=== PATIENT | female | born 1990 | race Caucasian/White ===

== ENCOUNTER 2016-09-09 10:57 | Inpatient (IN) | payer OTHER ==
[2016-09-09] MEDS ORDERED: Lidocaine 1% 30 ML SDV INJECT ONE (11:00)
[2016-09-09] MEDS ORDERED: Lidocaine 1% 30 ML SDV ONE (11:06)
[2016-09-09] MEDS ORDERED: Zolpidem 5 MG Tab PO PRN (12:36)
[2016-09-09] MEDS ORDERED: Sodium Chloride 0.9% 10 ML Syringe FLUSH PRN (12:36)
[2016-09-09] MEDS ORDERED: Carboprost Tromethamine 250 MCG/1 ML Amp IM PRN (12:36)
[2016-09-09] MEDS ORDERED: Simethicone 80 MG Tab.Chew PO PRN (12:36)
[2016-09-09] MEDS ORDERED: Oxytocin 10 Units/1 ML SDV IM PRN (12:36)
[2016-09-09] MEDS ORDERED: Benzocaine/Menthol 20%-0.5% Spray 56 GM Canister TOP PRN (12:36)
[2016-09-09] MEDS ORDERED: Acetaminophen 325 MG Tab PO PRN (12:36)
[2016-09-09] MEDS ORDERED: Misoprostol 400 MCG (4 X 100 MCG TAB) RECTAL PRN (12:36)
[2016-09-09] MEDS ORDERED: Oxytocin/Normal Saline 30 UNIT/500 ML BAG IV SCH (14:45)
[2016-09-09] MEDS: Ibuprofen 800 MG Tab PO PRN (14:46)
--- NOTE | 2016-09-09 14:49 | HP ---
PATIENT IDENTIFICATION: Samantha Nunn is a 26-year-old, G1, P0, intrauterine at 40 and 6/7th weeks, confirmed with 18-week ultrasound, who presents with contractions and vaginal leaking. HISTORY OF PRESENT ILLNESS: The patient states contractions started at approximately 05:00 a.m. on date of admission, increasing in frequency and intensity to the point that she is breathing and screaming through them, felt in the lower abdomen, and nothing seems to make them better or worse. Associated with this has been some vaginal leaking noted while they were en-route in a car to the hospital. She is unsure of what color, she does note some minimal bloody show. Records were called for, reviewed as below, and supplemented by patient history. OBSTETRICAL HISTORY: Primipara. ANTEPARTUM LABS: ABO blood type A negative. Negative antibody. Rubella immune. RPR nonreactive. Negative hepatitis B surface antigen. Negative hep C, HIV, GC, and Chlamydia. Wet prep remarkable for BV. One-hour GTT was 100 on 06/13/2016, hemoglobin was 12.4, and platelets 252,000 on 08/01/2016, with GBS negative the same day. ALLERGIES: None. MEDICATIONS: 1. vitamins. 2. Iron sulfate 325 daily. PAST MEDICAL/PAST SURGICAL HISTORY: Remarkable for menarche age 12, regular periods since July 2014, history of chickenpox as a child. Body piercing belly and ears. No IV drug use or blood transfusions, and has history of tattoo. SOCIAL HISTORY: No smoking and no alcohol during . Sexually active with male partner. She is and presents with him. His name is Stone. 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 They have a dog and a cat. FAMILY HISTORY: Breast cancer in maternal aunt. Diabetes in maternal grandmother, and paternal grandmother. Hypertension in father. Maternal grandmother with lung cancer, nonsmoker. Paternal grandfather is a twin. Paternal grandmother has myasthenia gravis, Prostate cancer in maternal grandfather and mother with thyroid disease. Negative family history of defects, cystic fibrosis, seizures, bleeding problems, or clotting disorders. REVIEW OF SYSTEMS: Quickly reviewed and otherwise felt to be noncontributory. The patient has been having a mild head cold. No fever, chills, sweats, or other concerns elicited. The patient denies any headaches, visual changes, or upper abdominal pain. OBJECTIVE: Vital Signs: She did have a blood pressure of 137/92, heart rate was around 120 to 130. Patient was afebrile. Respiratory rate is between 16 and 20, and nonlabored. General Appearance: Female appears her stated age, acting appropriate for age. Breathing through contractions, but answering questions appropriately in between. HEENT: Head is atraumatic. EOMs intact. PERRLA. No scleral icterus. No obvious otorhinorrhea. Mucous membranes are moist. Neck: No obvious tenderness. Lungs: Clear to auscultation bilaterally. No increased work of breathing. Heart: S1 and S2. Regular rate and rhythm. Abdomen: Gravid. Cristian's indeterminate. Nontender, nondistended. Bowel sounds positive. No organomegaly, pulsatile masses, or hernias. No rebound, rigidity, or guarding. Monitors applied. : Normal external female genitalia. Normal position and presentation of urethra. Vaginal exam reveals her to be complete with thick meconium fluid noted emanating from the vaginal area. Extremities: Trace edema. Deep tendon reflexes 2 to 3/4 bilaterally and symmetric in lower extremities. Psych: Mood and affect congruent. Judgment and insight intact. Skin: Without any cyanosis, clubbing, or jaundice. heart tones were felt to be reassuring upon admission. Tocometer revealed contractions on average every 2 minutes. LABORATORY DATA: CBC is pending. Please see delivery note for further details thereafter in terms of events. ASSESSMENT: 1. Intrauterine 40 and 6/7 weeks, confirmed with 18-week ultrasound. 2. Active labor. 3. Advanced cervical dilation. 4. Spontaneous rupture of membranes. 5. Thick meconium fluid. 6. Group B Streptococcus negative. 7. Rh negative. 8. History of PUPPPs during this per documentation. 9. G1, PO. 10.Gestational versus transient hypertension. PLAN: The patient was admitted, room was set up, and as she was found to be in the second stage of labor with occasional decelerations and had the urge to push, she started pushing. Please see delivery note for further details. In regard to her hypertension, we will follow closely after delivery as she delivered pretty quickly after being evaluated. [facility] /[id number]
[2016-09-09] MEDS ORDERED: Lactated Ringers 1,000 ML IV SCH (15:45)
[2016-09-10] MEDS: Ibuprofen 800 MG Tab PO PRN ×3 (00:59→17:14)
--- NOTE | 2016-09-10 08:17 | PN ---
DATE: 09/10/2016 SUBJECTIVE: Post-delivery day #1, status post vacuum-assisted vaginal delivery. See Dr. Ibrahim's delivery note for full details. The patient reports that she is doing well. She has been ambulating and tolerating regular diet. Blood flow has been as expected. She is her baby with some assistance from the nursing staff, not yet had a bowel movement, is voiding without any complications and overall feeling well today. OBJECTIVE: General: Pleasant, well-appearing 26-year-old female. Vital Signs: Temperature is 98.5, pulse 90, blood pressure 106/58, respiratory rate of 18, and O2 saturations of 97% on room air. Heart: Regular without obvious murmur. Lungs: Clear to auscultation bilaterally. Abdomen: Soft. Fundus is firm and below the umbilicus. Extremities: Trace edema. No erythema or tenderness noted. LABORATORY DATA: Shows hemoglobin is down to 12.1 from an admission hemoglobin of 14.4. ASSESSMENT: 1. Status post vacuum-assisted vaginal delivery because of bradycardia and tachycardia with recurrent decelerations. 2. 1, now para 1. 3. History of pruritic urticarial papules and plaques of rash plus blood type A negative. Baby's blood type is AB negative. She will not require RhoGAM. 4. Rubella immune. PLAN: Continue routine post-delivery cares. Anticipate discharge home tomorrow as long as all continues to go well. Reviewed delivery course with the patient and her and their questions were answered. [facility] /[id number]
[2016-09-10] MEDS: Prenatal Multivitamin with Calcium/Folic Acid/Iron Tab PO SCH (09:17)
[2016-09-10] MEDS: Docusate Sodium 100 MG Cap PO PRN ×2 (09:17→21:02)
--- NOTE | 2016-09-10 09:35 | DEL ---
DATE: 09/09/2016 PREOPERATIVE DIAGNOSES: 1. Intrauterine at 40-6/7 weeks, confirmed with 18-week ultrasound. 2. Active labor upon admit. 3. Advanced cervical dilation upon admit. 4. Spontaneous rupture prior to admit. 5. Thick meconium fluid. 6. Group B Streptococcus negative. 7. Rh negative. 8. History of pruritic urticarial papules and plaques of per documentation. 9. Gestational versus transient hypertension. 10. 1, para 0. 11. tachycardia. 12.Recurrent decelerations. 13. bradycardia. POSTOPERATIVE DIAGNOSES: 1. Intrauterine at 40-6/7 weeks, confirmed with 18-week ultrasound- delivered. 2. Active labor upon admit. 3. Advanced cervical dilation upon admit. 4. Spontaneous rupture prior to admit. 5. Thick meconium fluid. 6. Group B Streptococcus negative. 7. Rh negative. 8. History of pruritic urticarial papules and plaques of per documentation. 9. Gestational versus transient hypertension. 10. 1, para 0. 11. tachycardia. 12.Recurrent decelerations. 13. bradycardia. 14.LEISA presentation. 15.Tight nuchal cord x3 reduced bluntly with delivery. 16.Second-degree perineal laceration-repaired. PROCEDURE PERFORMED: Vacuum-assisted vaginal delivery with second-degree perineal laceration-repaired. ANESTHESIA/ANALGESIA: The patient did receive 1% lidocaine without epinephrine, approximately 10 mL for local repair with good anesthetic result. ESTIMATED BLOOD LOSS: 300 mL. FINDINGS: Female with scores of 1, 6 and 8. Weight pending.. Nuchal cord x3 reduced bluntly with delivery with thick meconium fluid. SUMMARY OF EVENTS: The patient is a 26-year-old, G1, P0, intrauterine 40-6/7 weeks, confirmed with 18-week ultrasound, presented with contractions and vaginal leaking. She was found to be in the second stage of labor upon initial evaluation. Room was set up, and as the patient had the urge to push, she started pushing with contractions. There was noted to be some recurrent decelerations that seemed to worsen over time, followed by tachycardia and then bradycardia. During this time period, Garcia-type catheter was introduced, coleman-colored urine returned. This was removed and discussion ensued in regard to using Kiwi vacuum. Subsequently, with the patient pushing, vertex was noted to be splitting the labia and nearly and there was concerns with heart tones. Subsequently, Kiwi vacuum was applied using the small cup Kiwi, pumped up to the green, and with the next episode of pushing and gentle pulling using the pressure monitor, vertex was delivered. Vacuum was disengaged. Nuchal cord x3 was noted and reduced bluntly with delivery with anterior and posterior shoulder as well as rest of the infant thereafter. LEISA presentation was noted. Cord was then doubly clamped and cut. Infant was brought over to team for resuscitation. Then, approximately 10 mL of cord blood was obtained for labs. Placenta then delivered with gentle cord traction with fundal massage within 5- 15 minutes. Perineum, vagina, and perirectal areas were then examined and noted to have a second-degree perineal laceration that was anesthetized and repaired in the usual fashion using 3-0 Vicryl. One periurethral abrasion was noted, nonbleeding, non-repaired after discussion with the patient. Mother and are currently stable at the time of dictation. [facility] /[id number]
[2016-09-11] MEDS: Ibuprofen 800 MG Tab PO PRN ×2 (00:32→08:11)
[2016-09-11] MEDS: Prenatal Multivitamin with Calcium/Folic Acid/Iron Tab PO SCH (08:10)
[2016-09-11] MEDS: Docusate Sodium 100 MG Cap PO PRN (08:11)
[2016-09-11 10:41] VITALS: BP 116/64
--- NOTE | 2016-09-12 05:47 | DISCH ---
ADMITTING DIAGNOSES: 1. A 40-6/7 weeks' intrauterine by last menstrual period, confirmed with 18-week ultrasound. 2. Active labor. 3. Advanced cervical dilatation. 4. Spontaneous rupture of membranes. 5. Thick meconium-stained fluid. 6. Group B Streptococcus negative. 7. Rh negative. 8. History of pruritic urticarial papules and plaques of during this per documentation. 9. 1, para 0. 10.Gestational versus transient hypertension. DISCHARGE DIAGNOSES: 1. A 40-6/7 weeks' intrauterine based on last menstrual period. 2. 1, now para 1. 3. Thick meconium-stained fluid. 4. Presented in active labor with complete cervical dilatation. 5. Group B Streptococcus negative. 6. Blood type A negative. 7. History of pruritic urticarial papules and plaques of rash during . 8. Obesity. 9. Delivery with noted tachycardia, bradycardia, and recurrent decelerations. 10.Status post vacuum-assisted vaginal delivery with second-degree laceration repair. BRIEF HISTORY: The patient is a 26-year-old with the above-listed diagnoses, who presented to the hospital in active labor and found to have complete cervical dilatation. She was hooked up to the monitors and ready to start pushing. Care was expedited. She did need to push for about 1 hour after having had about 5 hours of active labor. There was intermittent tachycardia, bradycardia noted on the monitoring strip, but she was progressing in labor. Ultimately, Dr. Ibrahim did apply a vacuum for assisted vaginal delivery. The baby's scores were 1, 6 and 8. He did a successful resuscitation. See those notes for details. Infant's weight 3515 g, 7 pounds, 12 ounces and a viable baby girl. HOSPITAL COURSE: Hospital course has been good. The patient has been doing well since the time of delivery. She is ambulating and tolerating regular diet. Bleeding has been minimal. She is breast feeding with good success. No shortness of breath or chest pain. No other problems have arisen. Baby's blood type was AB negative and IVDAL negative. Mother did not require RhoGAM and she is prepared for discharge today. DISCHARGE CONDITION: Good. PHYSICAL EXAMINATION: Vital Signs: Temperature is 98.2, pulse 91, blood pressure 116/64, respiratory rate of 18, and O2 saturations 100% on room air. Heart: Regular without obvious murmur. Lungs: Clear to auscultation bilaterally. Abdomen: Soft without masses. Uterus is firm and below the umbilicus. EXTREMITIES: Trace edema. No erythema or tenderness noted. LAB: Admission hemoglobin was 14.4, discharge hemoglobin is 12.1. DISPOSITION: Home with family. MEDICATIONS: 1. Ibuprofen 600 mg every 6 hours as needed for pain. 2. Tylenol 650 mg every 6 hours as needed for pain. 3. Colace 100 mg twice daily as needed for constipation. 4. vitamins, continue once daily. FOLLOWUP: She will be seen in the office for her 6-week exam, sooner if any problems or concerns. INSTRUCTIONS: Routine post vaginal delivery instructions for mother were provided. She was instructed to return if she has any difficulties with any headaches, chest pain, shortness of breath, blurry vision, other symptoms of preeclampsia. If she has any problems with increased bleeding, abdominal pain, fever, tenderness, foul-smelling drainage, discharge, or other concerns. Her questions were answered. [facility] /[id number]
== END 2016-09-11 13:00 | disposition home or self-care (01) | DRG 775 ==
LOC: DL.OBCHECK 10:57 → DL.OB 11:02 → OBSVTOIN 12:06 → DL.OB 12:06
PROVIDERS: ADMIT Family Medicine; ATTEND Family Medicine
PROC: 10D07Z6 Extraction of Products of Conception, Vacuum, Via Natural or Artificial Opening (ICD-10-PCS; principal; 2016-09-09)
PROC: 0KQM0ZZ Repair Perineum Muscle, Open Approach (ICD-10-PCS; 2016-09-09)
DX: O48.0 Post-term pregnancy (principal); O70.1 Second degree perineal laceration during delivery; O76 Abnormality in fetal heart rate and rhythm complicating labor and delivery; O99.214 Obesity complicating childbirth; O69.1XX0 Labor and delivery complicated by cord around neck, with compression, not applicable or unspecified; E66.9 Obesity, unspecified; Z3A.40 40 weeks gestation of pregnancy; Z37.0 Single live birth
CPT/HCPCS: 36415; 85027; A9270-GY; J2590; J7120

== ENCOUNTER 2019-05-05 11:09 | Inpatient (IN) | payer OTHER ==
[2019-05-09] MEDS ORDERED: Lactated Ringers 500 ML IV ONE (00:01)
[2019-05-09] MEDS ORDERED: hydrOXYzine HCl 25 MG Tab PO PRN (21:24)
[2019-05-10] MEDS ORDERED: Methylergonovine 0.2 MG/1 ML Amp IM PRN (00:01)
[2019-05-10] MEDS ORDERED: Ondansetron 4 MG/2 ML SDV IV PRN (00:01)
[2019-05-10] MEDS ORDERED: Lactated Ringers 1,000 ML IV SCH (00:01)
[2019-05-10] MEDS ORDERED: Misoprostol 400 MCG (4 X 100 MCG TAB) RECTAL PRN (00:01)
[2019-05-10] MEDS ORDERED: Lidocaine 1% 30 ML SDV INJECT PRN (00:01)
[2019-05-10] MEDS ORDERED: fentaNYL 100 MCG/2 ML SDV IVPUSH PRN (00:01)
[2019-05-10] MEDS ORDERED: Carboprost Tromethamine 250 MCG/1 ML Amp IM PRN (00:01)
[2019-05-10] MEDS ORDERED: Oxytocin/Normal Saline 30 UNIT/500 ML BAG IV SCH ×2 (00:01)
[2019-05-10] MEDS ORDERED: Misoprostol 25 MCG (1/4 of 100 MCG) Tab VAG PRN (00:01)
[2019-05-10] MEDS ORDERED: Tranexamic Acid 1,000 MG in Sodium Chloride 0.9% 100 ML IV PRN (00:01)
[2019-05-10] MEDS ORDERED: Acetaminophen 325 MG Tab PO PRN (00:01)
[2019-05-10] MEDS ORDERED: Sodium Chloride 0.9% 10 ML Syringe FLUSH PRN (00:01)
[2019-05-10] MEDS ORDERED: Simethicone 80 MG Tab.Chew PO PRN (05:35)
[2019-05-10] MEDS ORDERED: Measles, Mumps & Rubella Vaccine 0.5 ML SDV SUBCUT ONE (05:35)
[2019-05-10] MEDS ORDERED: Benzocaine/Menthol 20%-0.5% Spray 56 GM Canister TOP PRN (05:35)
[2019-05-10] MEDS: Ibuprofen 800 MG Tab PO PRN ×2 (07:01→15:27)
[2019-05-10] MEDS: Prenatal Multivitamin with Calcium/Folic Acid/Iron Tab PO SCH (11:52)
[2019-05-10] MEDS: Docusate Sodium 100 MG Cap PO PRN (11:52)
[2019-05-10] MEDS: Ferrous Sulfate 325 MG Tab PO SCH (11:52)
[2019-05-11] MEDS: Prenatal Multivitamin with Calcium/Folic Acid/Iron Tab PO SCH (08:08)
[2019-05-11] MEDS: Ibuprofen 800 MG Tab PO PRN (08:08)
[2019-05-11] MEDS: Docusate Sodium 100 MG Cap PO PRN (08:08)
[2019-05-11] MEDS: Ferrous Sulfate 325 MG Tab PO SCH (08:08)
[2019-05-11 08:32] VITALS: BP 107/65; PULSE 78
--- NOTE | 2019-05-11 13:02 | DEL ---
DATE: 05/10/2019 PREPROCEDURE DIAGNOSES: 1. A 40 and 5/7 weeks' intrauterine by last menstrual period. 2. 2, para 1-0-0-1. 3. Anemia of . 4. Rubella nonimmune. 5. Blood type A negative. 6. Group B Streptococcus negative. POSTPROCEDURE DIAGNOSES: 1. A 40 and 5/7 weeks' intrauterine by last menstrual period. 2. 2, para 1-0-0-1. 3. Anemia of . 4. Rubella nonimmune. 5. Blood type A negative. 6. Group B Streptococcus negative. 7. Nuchal cord x1. 8. Shoulder dystocia. 9. Post spontaneous vaginal delivery with first-degree repair. BRIEF HISTORY: A 28-year-old female with the above-listed diagnoses presented to the hospital for induction of labor due to postdates and was given 1 dose of Cytotec and had stage I labor for only about 3 hours before she was 9 cm dilated. She then had spontaneous rupture of clear fluid and continued on to complete after pushing through only about 5 contractions. The baby's head had delivered and a nuchal cord was noted and reduced bluntly. Remainder of baby was not coming easily, so the shoulder was noted and reduced for delivery. After that, she did well with details as below. Please see her admission history and physical for full details of that. PROCEDURE IN DETAIL: With the patient in dorsal lithotomy position, she delivered a viable female infant over intact perineum in the OA position. At delivery of the head, there was a tight nuchal cord which was reduced bluntly. Remainder of the was not coming easily thereafter, so nurses placed the patient in Brielle' position, 1 nurse applied suprapubic pressure, and I entered the vagina to help rotate one of the shoulders, and I was able to easily reach the posterior arm if needed. After rotation of the shoulder, the baby delivered thereafter. Shoulder dystocia was total of less than 30 seconds. Terminal meconium was noted. Baby initially had good efforts of crying and while she was being dried and stimulated, she ceased respiratory effort and tone became floppy. Three-vessel umbilical cord was doubly clamped and then cut. Baby taken over to the warmer for further resuscitation. After baby doing well, I returned to the perineum and delivered the placenta by gentle cord traction and concomitant uterine massage, which took about 15 minutes. The perineum was inspected and found to have a first-degree laceration that needed typical repair for hemostasis. Repair of the laceration was performed under 1% lidocaine without epinephrine and using a 3-0 Vicryl suture. After this, it was hemostatic. The remainder of labia and vagina inspected and no other lacerations present. Mother had tolerated the procedure well. FINDINGS: Normal female with nuchal cord and less than 30-second shoulder dystocia, relieved as above. At the warmer, baby did require less than 1 minute of positive pressure ventilation for heart rate less than 100, and she responded readily thereafter. Her score is 6 and 9. weight 4035 g, 8 pounds 14 ounces. ESTIMATED BLOOD LOSS: 250 mL. DISPOSITION: Mother and baby to stay in the room at this time to initiate and maternal and child bonding as they are now doing well. [facility] /[id number]
== END 2019-05-11 12:28 | disposition home or self-care (01) | DRG 807 ==
LOC: DL.OB 05-10 00:07 → OBSVTOIN 05-10 04:58
PROVIDERS: ADMIT Family Medicine; ATTEND Family Medicine
PROC: 10E0XZZ Delivery of Products of Conception, External Approach (ICD-10-PCS; principal; 2019-05-10)
PROC: 3E0P7VZ Introduction of Hormone into Female Reproductive, Via Natural or Artificial Opening (ICD-10-PCS; 2019-05-10)
PROC: 0HQ9XZZ Repair Perineum Skin, External Approach (ICD-10-PCS; 2019-05-10)
PROC: 3E0234Z Introduction of Serum, Toxoid and Vaccine into Muscle, Percutaneous Approach (ICD-10-PCS; 2019-05-10)
DX: O48.0 Post-term pregnancy (principal); Z37.0 Single live birth; Z3A.40 40 weeks gestation of pregnancy; O77.0 Labor and delivery complicated by meconium in amniotic fluid; O69.81X0 Labor and delivery complicated by cord around neck, without compression, not applicable or unspecified; O99.214 Obesity complicating childbirth; E66.9 Obesity, unspecified; O99.02 Anemia complicating childbirth; D64.9 Anemia, unspecified; O66.0 Obstructed labor due to shoulder dystocia; O70.0 First degree perineal laceration during delivery; Z23 Encounter for immunization
CPT/HCPCS: 36415; 36430; 59409; 85027; 85461; 86850; 86900; 86901; 90471; 90707; A9270-GY; J2001; J2590; J2790; J3010; J7120

== ENCOUNTER 2022-03-10 08:00 | Inpatient (IN) | payer BC ==
[2022-03-10] MEDS ORDERED: Misoprostol 50 MCG (1/2 of 100 MCG) Tab VAG ONE (09:20)
[2022-03-10] MEDS ORDERED: Ibuprofen 800 MG Tab PO ONE (20:00)
[2022-03-10] MEDS ORDERED: Docusate Sodium 100 MG Cap PO ONE (20:00)
[2022-03-11] MEDS ORDERED: Prenatal Multivitamin with Calcium/Folic Acid/Iron Tab PO ONE (11:10)
== END 2022-03-11 15:08 | disposition home or self-care (01) | DRG 560 ==
LOC: DL.OBCHECK 08:00 → DL.ZCENSUS 08:30 → OBSVTOIN 14:43
PROVIDERS: ADMIT Family Medicine; ATTEND Family Medicine
PROC: 10E0XZZ Delivery of Products of Conception, External Approach (ICD-10-PCS; principal; 2022-03-10)
PROC: 3E0P7VZ Introduction of Hormone into Female Reproductive, Via Natural or Artificial Opening (ICD-10-PCS; 2022-03-10)
DX: O99.02 Anemia complicating childbirth (principal); D64.9 Anemia, unspecified; O99.214 Obesity complicating childbirth; Z37.0 Single live birth; Z3A.39 39 weeks gestation of pregnancy; O70.0 First degree perineal laceration during delivery; Z20.822 Contact with and (suspected) exposure to COVID-19; Z28.82 Immunization not carried out because of caregiver refusal
CPT/HCPCS: 36415; 59025; 59409; 85027; 85461; 86850; 86900; 86901; A9270-GY; J2790; U0002